=== PATIENT | male | born 1970 | race Caucasian/White ===

== ENCOUNTER 2021-04-21 15:07 | Emergency (ER) | payer MEDICARE ==
[2021-04-21 15:41] LABS: HEMOGLOBIN 9.3 gm/dl (14.0-17.5); RED BLOOD COUNT 2.92 M/UL (4.20-5.50); WHITE BLOOD COUNT 19.2 K/UL (4.5-11.0)
== END 2021-04-21 22:20 | disposition short-term general hospital (02) ==
LOC: ER1 15:07
PROVIDERS: Physician Assistant Medical
DX: K74.60 Unspecified cirrhosis of liver (principal); E11.22 Type 2 diabetes mellitus with diabetic chronic kidney disease; N18.9 Chronic kidney disease, unspecified; F17.200 Nicotine dependence, unspecified, uncomplicated; E72.20 Disorder of urea cycle metabolism, unspecified; Z88.5 Allergy status to narcotic agent; Z20.822 Contact with and (suspected) exposure to COVID-19
CPT/HCPCS: 36600; 51702; 70450; 71045; 80053; 80307; 81001; 82009; 82140; 82550; 82553; 82803; 83605; 83690; 83874; 84484; 85025; 85610; 87040; 93005; 96374; 99285; G0480; J0696; U0002

== ENCOUNTER 2021-07-12 14:22 | Emergency (ER) | payer MEDICARE ==
[2021-07-12 20:15] LABS: HEMOGLOBIN 8.8 gm/dl (14.0-17.5); RED BLOOD COUNT 2.71 M/UL (4.20-5.50); WHITE BLOOD COUNT 6.9 K/UL (4.5-11.0)
[2021-07-12] MEDS ORDERED: BACTRIM DS TAB1 EACH PO (22:43)
== END 2021-07-12 22:03 | disposition home or self-care (01) ==
LOC: ER1 14:22
PROVIDERS: Student in an Organized Health Care Education/Training Program
DX: K61.1 Rectal abscess (principal); E11.9 Type 2 diabetes mellitus without complications; F17.210 Nicotine dependence, cigarettes, uncomplicated
CPT/HCPCS: 10060; 72193; 80053; 85025; 99283; Q9967

== ENCOUNTER 2021-10-28 21:58 | Inpatient (IN) | payer MEDICARE ==
[~2021-10-28] VITALS: Ht 180.3 cm; Wt 74.8 kg
[~2021-10-28 21:58] MED LIST: BACTRIM DS TAB1 EACH PO
[2021-10-29 00:27] LABS: HEMOGLOBIN 8.4 gm/dl (14.0-17.5); RED BLOOD COUNT 2.51 M/UL (4.20-5.50); WHITE BLOOD COUNT 9.7 K/UL (4.5-11.0)
[2021-10-30 06:26] LABS: HEMOGLOBIN 7.6 gm/dl (14.0-17.5); RED BLOOD COUNT 2.24 M/UL (4.20-5.50); WHITE BLOOD COUNT 7.9 K/UL (4.5-11.0)
[2021-10-31 05:10] LABS: WHITE BLOOD COUNT 6.3 K/UL (4.5-11.0)
[2021-10-31 05:39] LABS: RED BLOOD COUNT 1.95 M/UL (4.20-5.50)
[2021-10-31 05:40] LABS: HEMOGLOBIN 6.5 gm/dl (14.0-17.5)
--- NOTE | 2021-10-31 14:32 | NUR ---
1432- NOTIFIED DR. AYALA OF PT COMPLAINING OF CHEST PAIN. BP 172/94, HR 80. DR AYALA STATES HE WILL PUT AN ORDER IN FOR EKG, AND CARDIAC ENZYMES. WILL CONTINUE TO MONITOR.
[2021-10-31] MEDS ORDERED: XIFAXAN 550 MG550 MG PO (19:50)
[2021-10-31] MEDS ORDERED: ONDANSETRON4 MG/2 M2 IV (19:50)
[2021-10-31] MEDS ORDERED: [UNRECOGNIZED DRUG - OTHER] IV (19:50)
[2021-10-31] MEDS ORDERED: HYDRALAZIN20 MG/1 ML IVP (19:50)
[2021-10-31] MEDS ORDERED: PROTONIX IV40 MG IV (19:50)
[2021-10-31] MEDS ORDERED: SANDOSTATI100 MCG/ML SC (19:50)
[2021-10-31] MEDS ORDERED: CHRONULAC20 GM/30 M PO (19:50)
[2021-10-31] MEDS ORDERED: PROTONIX IV (19:54)
[2021-10-31] MEDS ORDERED: CEFTRIAXONE1 GM INJ (20:10)
[2021-11-04 13:10] LABS: A/G RATIO 0.5 (0.7-1.7); ALBUMIN 2.2 g/dL (2.9-4.4); ALPHA-1-GLOBULIN 0.2 g/dL (0.0-0.4); ALPHA-2-GLOBULIN 0.3 g/dL (0.4-1.0); BETA GLOBULIN 1.1 g/dL (0.7-1.3); GAMMA GLOBULIN 3.1 g/dL (0.4-1.8); GLOBULIN, TOTAL 4.7 g/dL (2.2-3.9); IMMUNOGLOBULIN A, QN, SERUM 1628 mg/dL (90-386); IMMUNOGLOBULIN G, QN, SERUM 2449 mg/dL (603-1613); IMMUNOGLOBULIN M, QN, SERUM 194 mg/dL (20-172); M-SPIKE Not Observed g/dL (Not Observed); PROTEIN, TOTAL, SERUM 6.9 g/dL (6.0-8.5)
== END 2021-11-01 00:35 | DRG 441 ==
LOC: ER1 21:58 → M/S 10-29 04:16 → CDU 10-29 04:16 → M/S 10-29 09:53
PROVIDERS: Internal Medicine; Nurse Practitioner; Student in an Organized Health Care Education/Training Program; ADMIT Internal Medicine
DX: K72.00 Acute and subacute hepatic failure without coma (principal); K76.7 Hepatorenal syndrome; N17.9 Acute kidney failure, unspecified; Z20.822 Contact with and (suspected) exposure to COVID-19; D61.818 Other pancytopenia; N30.00 Acute cystitis without hematuria; E87.2 Acidosis; K74.60 Unspecified cirrhosis of liver; I12.9 Hypertensive chronic kidney disease with stage 1 through stage 4 chronic kidney disease, or unspecified chronic kidney disease; D63.1 Anemia in chronic kidney disease; N18.30 Chronic kidney disease, stage 3 unspecified; D69.6 Thrombocytopenia, unspecified; B19.20 Unspecified viral hepatitis C without hepatic coma; F17.210 Nicotine dependence, cigarettes, uncomplicated; Z91.14 Patient's other noncompliance with medication regimen; Z88.8 Allergy status to other drugs, medicaments and biological substances; Z88.6 Allergy status to analgesic agent; Z87.828 Personal history of other (healed) physical injury and trauma
CPT/HCPCS: 0240U; 36415; 70450; 71045; 76705; 80053; 80076; 81001; 82140; 82150; 82550; 82553; 82570; 82595; 82607; 82746; 82784; 83010; 83540; 83550; 83605; 83615; 83735; 83874; 83880; 83883; 84100; 84133; 84155; 84156; 84165; 84300; 84484; 85014; 85018; 85025; 85027; 85610; 85652; 86140; 86156; 86334; 86850; 86880; 86900; 86901; 86920; 87040; 93005; 96374; 99285; C9113; J0360; J0696; J2354; P9016; P9047

== ENCOUNTER 2021-11-28 16:14 | Emergency (ER) | payer MEDICARE ==
[~2021-11-28 16:14] MED LIST changes: +CEFTRIAXONE1 GM INJ; +CHRONULAC20 GM/30 M PO; +HYDRALAZIN20 MG/1 ML IVP; +ONDANSETRON4 MG/2 M2 IV; +PROTONIX IV; +PROTONIX IV40 MG IV; +SANDOSTATI100 MCG/ML SC; +XIFAXAN 550 MG550 MG PO; +[UNRECOGNIZED DRUG - OTHER] IV
[2021-11-28 17:50] LABS: HEMOGLOBIN 7.8 gm/dl (14.0-17.5); RED BLOOD COUNT 2.41 M/UL (4.20-5.50); WHITE BLOOD COUNT 4.4 K/UL (4.5-11.0)
== END 2021-11-28 19:53 | disposition other institution (70) ==
LOC: ER1 16:14
PROVIDERS: Emergency Medicine
DX: R18.8 Other ascites (principal); K72.90 Hepatic failure, unspecified without coma; D64.9 Anemia, unspecified; F17.200 Nicotine dependence, unspecified, uncomplicated; Z51.81 Encounter for therapeutic drug level monitoring; Z86.19 Personal history of other infectious and parasitic diseases
CPT/HCPCS: 71045; 80053; 82140; 83880; 84484; 85025; 85610; 93005; 99284

== ENCOUNTER 2022-02-07 14:07 | Emergency (ER) | payer MEDICARE ==
[2022-02-07 16:02] LABS: HEMOGLOBIN 8.6 gm/dl (14.0-17.5); RED BLOOD COUNT 2.61 M/UL (4.20-5.50); WHITE BLOOD COUNT 3.9 K/UL (4.5-11.0)
== END 2022-02-07 21:23 | disposition home or self-care (01) ==
LOC: ER1 14:07
PROVIDERS: Physician Assistant
DX: K72.90 Hepatic failure, unspecified without coma (principal); E87.2 Acidosis; N17.9 Acute kidney failure, unspecified; E87.5 Hyperkalemia; R31.9 Hematuria, unspecified; I12.9 Hypertensive chronic kidney disease with stage 1 through stage 4 chronic kidney disease, or unspecified chronic kidney disease; N18.4 Chronic kidney disease, stage 4 (severe); K74.60 Unspecified cirrhosis of liver; D61.818 Other pancytopenia; F17.210 Nicotine dependence, cigarettes, uncomplicated; Z88.5 Allergy status to narcotic agent
CPT/HCPCS: 70450; 71045; 80053; 81001; 82140; 82550; 82553; 82800; 82962; 84484; 85025; 85610; 93005; 94640; 94664; 94760; 96374; 96375; 99285; J0696